=== PATIENT | female | born 1955 ===

== ENCOUNTER 2021-04-07 05:30 | Day surgery (SDC) | payer OTHER ==
[~2021-04-07 05:30] MED LIST: ATACAND32 MG PO; CARDURA1 MG PO
[2021-04-07] MEDS ORDERED: PERCOCET 5-3251 EACH PO (11:48)
[2021-04-07] MEDS ORDERED: KETO10TA2 PO (11:48)
[2021-04-07] MEDS ORDERED: NEURONTIN300 MG PO (11:49)
== END 2021-04-07 11:45 | disposition home or self-care (01) ==
LOC: CIR.AMB 05:30
PROVIDERS: ATTEND Surgery
DX: K64.4 Residual hemorrhoidal skin tags (principal); Z20.822 Contact with and (suspected) exposure to COVID-19